=== PATIENT | male | born 1990 | race Caucasian/White ===

== ENCOUNTER 2019-10-26 06:13 | Day surgery (SDC) | payer OTHER ==
[~2019-10-26] VITALS: Ht 185.4 cm; Wt 91.2 kg
[~2019-10-26 06:13] MED LIST: IBUP-1114 PO; LIDOCAINE 1% MDV 20ML VIAL SQ PRN; LR 1,000 ML IV ONE
[2019-10-26] MEDS ORDERED: dexameTHASONE 10MG/1ML VIAL PRES.FREE (J1100 PER 1MG) ONE (06:14)
[2019-10-26] MEDS ORDERED: LIDOCAINE 1% MDV 20ML VIAL ONE (06:14)
[2019-10-26] MEDS ORDERED: ROPIvacaine 0.5% 30ML INJECTION (J2795 PER 1MG) ONE (06:14)
[2019-10-26] MEDS ORDERED: MIDAZOLAM INJ 2MG/2ML VIAL (J2250 PER 1MG) As Ordered ONE ×2 (06:43→07:02)
[2019-10-26] MEDS ORDERED: fentaNYL 100 MCG/2 ML INJECTION (J3010) As Ordered ONE ×2 (06:43→07:02)
[2019-10-26] MEDS ORDERED: ONDANSETRON 4MG/2ML VIAL As Ordered ONE (07:02)
[2019-10-26] MEDS ORDERED: LIDOCAINE 2% 100MG/5ML SDV (FOR ANES.) As Ordered ONE (07:02)
[2019-10-26] MEDS ORDERED: propofoL 200 MG/20 ML VIAL As Ordered ONE (07:02)
[2019-10-26] MEDS ORDERED: METOCLOPRAMIDE INJ 10MG/2ML VIAL (J2765 PER 1) As Ordered ONE (07:02)
[2019-10-26] MEDS ORDERED: ceFAZolin 2 GM/D5W 50 ML IV BAG (J0690 PER 500MG) As Ordered ONE (07:36)
[2019-10-26] MEDS ORDERED: fentaNYL 100 MCG/2 ML INJECTION (J3010) IV ONE (08:00)
[2019-10-26] MEDS ORDERED: MIDAZOLAM INJ 2MG/2ML VIAL (J2250 PER 1MG) IV ONE (08:00)
[2019-10-26] MEDS ORDERED: HYDROMORPHONE HCL 0.5 MG/ 0.5 ML SYRINGE (J1170 PER 1) IV PRN (09:45)
[2019-10-26] MEDS ORDERED: LR 1,000 ML IV SCH ×2 (09:45→10:00)
[2019-10-26] MEDS ORDERED: ONDANSETRON 4MG/2ML VIAL IV PRN ×2 (09:45→10:00)
[2019-10-26] MEDS ORDERED: fentaNYL 100 MCG/2 ML INJECTION (J3010) IV PRN (09:45)
[2019-10-26] MEDS ORDERED: oxyCODONE 5MG TAB PO PRN (09:45)
[2019-10-26] MEDS ORDERED: MORPHINE 2 MG/ML 1ML VIAL (J2270) IV PRN (10:00)
[2019-10-26] MEDS ORDERED: PERCOCET 5MG/325MG TAB PO PRN (10:00)
[2019-10-26] MEDS ORDERED: ACETAMINOPHEN TAB 650MG DOSE (2X325MG) PO PRN (10:00)
[2019-10-26 11:55] VITALS: BP 139/72
--- NOTE | 2019-10-30 09:06 | RO ---
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 POSTOPERATIVE DIAGNOSES: Right knee anterior cruciate ligament tear, lateral meniscus tear, and medial femoral condyle osteochondritis dissecans lesion. PLANNED PROCEDURE: Right knee hamstrings autograft anterior cruciate ligament reconstruction, possible partial medial or lateral meniscectomy versus repair, as well as microfracture of medial femoral condyle. PROCEDURE PERFORMED: Right knee anterior cruciate ligament hamstrings autograft reconstruction, partial lateral meniscectomy, microfracture medial femoral condyle, and removal of loose body. SURGEON: Rasheed Sanderson MD BODY AND FENDER MECHANIC: Dr. Davide Cook RAILCAR SWITCHMAN: Dr. Abebe TYPE OF ANESTHETIC: General anesthesia and block. OPERATIVE PREAMBLE: This 29-year-old man is in the . He sustained an ACL tear as well as a sprain to the medial and lateral collateral ligaments. They were overall intact and stable on physical exam. I reiterated the risks in preoperative holding, marked the right lower extremity, and proceeded to surgery. OPERATIVE REPORT: Patient was brought to the operating theater. They were placed supine on the operating room table. 2 grams of IV Ancef was administered. All bony prominences were padded. Sequential compression device (SCD) was used on the down leg. A tourniquet was used on the right thigh, appropriately padded. Stress positioner was used on the right thigh. General anesthesia was induced. Limb was prepped and draped in the usual sterile fashion, allowing over 3 minutes of prep solution drying time. Preoperative time-out was performed to confirm the site, the patient, and the surgery. Began by elevating the leg and inflating the tourniquet to 250 mmHg. Total tourniquet time 87 minutes. I began by inserting the arthroscope through a standard high anterolateral portal as well as making a mid anteromedial portal just off the edge of the patellar tendon. Performed thorough diagnostic arthroscopy. Patellofemoral cartilage was normal. Medial and lateral gutters were normal, as well. ACL was obviously deficient with an empty lateral wall sign. This was completely debrided. Posterior cruciate ligament (PCL) was normal. Medial compartment had normal cartilage aside from the OCD lesion centered slightly posteriorly in the weightbearing surface more towards the lateral side. This measured approximately 1 cm x 1 cm. As such, it was elected to use the Arthrex PowerPick to perform a microfracture. I ensured that the calcified cartilage layer was removed and that the edges of the lesion were sharply demarcated and vertical. I probed the medial meniscus. There was no obvious tear of the root as I did achieve a Gillquist view of the posterior horn of the medial meniscus, which was stable and solid to probing. No obvious tears. I then entered the lateral compartment. There was an obvious inferior surface horizontal fraying tear as well as a small radial tear that went near the root, creating a small flipped fragment superiorly of tissue. This was debrided to stable margins using a combination of biter and shaver instruments. The root was stable and solid to probing. I removed possibly 7-10% of the overall entire aspect of the meniscus. The scope was then withdrawn. I made a small 2 inch incision centered over the proximal anteromedial border of the tibia. Carried this dissection down through skin and subcutaneous tissue. This was centered over the pes anserine insertion of the tendon three fingerbreadths below the level of tibial plateau. I incised the sartorius fascia in line with the tendon insertions. I removed any bands from the semitendinosus and gracilis tendons. I used an open-ended tendon harvester to release the tendons proximally, cleaned off any muscle and soft tissue attachments to the tendons, and then sharply excised them off bone and placed a lap sponge in the wound. Tendons were taken to the back table. They were cut to 24 cm long each after being . They were flipped end on end. Each end was then whipstitched for a length of 1 inch using #2 FiberWire suture. One end was attached to the TightRope RT button for the femoral side. The graft was tripled over and docked inside itself and attached and looped through the ABS button system. Backup suture was then tied as well. The graft was placed on slight tension, and at 1 and 2 cm from each end, a loop locking stitch with buried knot was then created to lock the graft at each end. The graft was sized to be approximately 11 mm in diameter. Graft was placed on tension and covered with a wet sponge. I then turned my attention back to the knee. I used the inside-out Arthrex retrograde variable size/length system to create 11 mm tunnels in the femur and the tibia. These were 3 cm in the femur and 4 cm in the tibia. Femoral tunnel was near the back wall but not to it and low down on the notch. Tibial tunnel was in between the spines without blowing them out and centered in line with the anterior horn of lateral meniscus. Tunnels were cleaned. A PassPort cannula was then placed after the medial portal site was widened. FiberStick and TigerStick sutures were then brought out and appropriately identified through the anteromedial portal. PassPort was removed. The femoral side of the graft was then passed up into the tunnel and the button flipped. Sutures were tightened down to deliver approximately 3 cm into the femoral side. I then passed the sutures, including a luggage tag-type stitch that I inserted onto the loop of the ABS button system through the tibial tunnel. Graft was secured down into place. Knee was cycled through a full range of motion 10 times. ABS button was then attached, and the backup suture was attached to the button as well. Graft was tensioned at 30 degrees and 0 degrees as well. Graft was tight and achieved good fixation in both apertures. Final arthroscopy pictures were taken and saved onto the system. Scope was withdrawn. Wound was cleaned with went-to-dry dressing and tourniquet taken down. Subcutaneous tissue was closed with interrupted #2-0 Vicryl, skin with #3-0 Monocryl. Steri-Strips were applied. This was followed by cleaning the incision as well as Adaptic, 4 x 8 gauze, ABD dressing overwrapped with sterile 6 inch Giovanny bandage. The patient's right lower extremity was then placed into a brace locked in full extension. Patient was woken up from the general anesthetic, transferred off the operating room table, and taken to postanesthetic care unit in stable condition. All sponge, needle, and instruments counts correct. No complications. Estimated blood loss 50 mL. Plan for the patient is to be partial to non-weightbearing for the first 2 weeks, gradually increase after that. They can start immediate passive range of motion 0-90 degrees when they get into physical therapy. They should elevate the leg, use rest, ice to get the swelling down. I will follow him up in 2 weeks' time in the clinic, and they will be discharged home according to day surgery criteria. ADDENDUM: The assistant professor of nursing, Dr. Davide Cook, was instrumental in achieving visualization, passing instruments, securing the graft throughout the case. Addendum Dictated: 10/26/2019 [id number] Addendum Transcribed: 10/26/2019 [id number] [facility]
== END 2019-10-26 12:15 | disposition home or self-care (01) ==
LOC: M SDC 06:13
PROVIDERS: ATTEND Orthopaedic Surgery Sports Medicine
DX: S83.31XA Tear of articular cartilage of right knee, current, initial encounter (principal); S83.281A Other tear of lateral meniscus, current injury, right knee, initial encounter; S83.241A Other tear of medial meniscus, current injury, right knee, initial encounter; M93.261 Osteochondritis dissecans, right knee; X58.XXXA Exposure to other specified factors, initial encounter; Y92.89 Other specified places as the place of occurrence of the external cause; Y93.9 Activity, unspecified; Y99.9 Unspecified external cause status
CPT/HCPCS: 29874; 29881; 29888; 64447; 97116; C1713; J0690; J1100; J2250; J2405; J2765; J2795; J3010